=== PATIENT | male | born 1970 | race Caucasian/White ===

== ENCOUNTER 2017-05-13 07:45 | Emergency (ER) | payer OTHER, MEDICAID ==
[~2017-05-13] VITALS: Ht 170.2 cm; Wt 81.7 kg
[2017-05-13 10:14] VITALS: BP 147/94
== END 2017-05-13 10:14 | disposition home or self-care (01) ==
LOC: ED 07:45
DX: R51 Headache (principal); R03.0 Elevated blood-pressure reading, without diagnosis of hypertension
CPT/HCPCS: J1885; Q0164